=== PATIENT | female | born 1960 | race Caucasian/White ===

== ENCOUNTER → 2017-08-18 13:03 | Outpatient (CLI) | payer MEDICARE, SELFPAY ==
--- NOTE | 2017-08-18 13:08 | CT_ITS ---
CT lung screening EXAM: CT LUNG LOW DOSE WO CONTRAST COMPARISON: None HISTORY: 56 year old female with 62 pack year smoking history asymptomatic ITS.REASON: CURRENT SMOKER ORDERING PHYSICIAN: Leon Ayers MD PATIENT AGE: 56 years TECHNIQUE: The exam was performed on a GE Light Speed [address] scanner using 2.90 mGy CTDI. A low dose helical CT CHEST was performed on a multi-detector scanner. All CT scans at the facility use one or more dose reduction, viz: automated exposure control; ma/kV adjustment per patient size (including targeted exams where dose is matched to indication; i.e. head); or iterative reconstruction technique. The LDCT was performed in a facility that meets the criteria for the screening program. Data regarding this exam was submitted to ACR which is an approved registry. The order for this exam indicates that it came as a result of a lung cancer screening counseling shard decision-making visit that included all the elements required of such a visit including smoking cessation. The radiologist interpreting this exam meets the CMS criteria for the LDCT lung cancer screening program. The exam is reported using the Lung-RADS classification scale and reported to the ACR registry. NOTE: This study was performed for the specific purposes of lung cancer screening and is not an alternative to diagnostic chest CT. RADIATION DOSE: CTDI vol(CT dose Index-volume) = 2.90mG DLP (Dose Length Product) = 100.18 mGcm FINDINGS: Paraseptal emphysematous changes with hyperinflation consistent with smoking-related lung disease 3 mm subpleural nodule right middle lobe laterally, 4 mm subpleural nodular density right lower lobe posteriorly and 2 mm subpleural nodule right lower lobe posteriorly and medially. 4 mm noncalcified nodule left upper lobe laterally Calcified granuloma right upper lobe centrally. Mild biapical fibrotic change IMPRESSION: 1. Lung RADS Category: 2, benign 2. Other findings: Paraseptal emphysema and bronchial thickening with hyperinflation consistent with smoking-related lung disease RECOMMENDATIONS: 12 month LDCT follow-up
== END ==
PROVIDERS: Family Provider Family Medicine; PCP Family Medicine; Visit Provider Family Medicine
DX: Z87.891 Personal history of nicotine dependence (principal); Z12.2 Encounter for screening for malignant neoplasm of respiratory organs

== ENCOUNTER → 2019-02-27 14:58 | Outpatient (CLI) | payer MEDICARE, SELFPAY ==
--- NOTE | 2019-02-27 15:02 | US_ITS ---
PROCEDURE: US EXTREMITY RT LIMITED CLINICAL INDICATION: PALPABLE MASS RT ARM COMPARISON: No exams were available for comparison FINDINGS: There is a homogeneous oval area of subcutaneous slight increased echogenicity in the right upper arm corresponding to the palpable abnormality which measures 2.7 x 0.9 by 2 cm and may represent a lipoma. This could be confirmed with CT if clinically desired. IMPRESSION: Probable lipoma in the right arm corresponding to the palpable abnormality Dictated by: Eder Cancino MD 02/27/2019 16:03 Electronically signed by Eder Cancino MD in [place] 02/27/2019 16:03
== END ==
PROVIDERS: PCP Family Medicine; Visit Provider Family Medicine
DX: D48.7 Neoplasm of uncertain behavior of other specified sites (principal)
CPT/HCPCS: 76882

== ENCOUNTER → 2019-03-12 08:45 | Outpatient (CLI) | payer MEDICARE, SELFPAY ==
--- NOTE | 2019-03-12 08:47 | MM_ITS ---
PROCEDURE: MM DIG SCREENING MAMM BI W/CAD CLINICAL INDICATION: SCREENING There is no personal or family history of breast cancer COMPARISON: DMSB DIGITAL MAMM-SCREEN BILATERAL from 02/22/2011 TECHNIQUE: Standard CC and MLO images were obtained. R2 CAD reviewed. FINDINGS: Prominent diffuse somewhat heterogenic fibroglandular densities are seen in both breasts. There are couple of benign-appearing calcifications right breast. There is benign-appearing oval density upper-outer quadrant left breast not seen on the previous exam. This is likely a cyst or fibroadenoma however recommend the patient return for ultrasound examination left breast for additional evaluation. IMPRESSION: Moderate heterogenic breast density with asymmetric density left breast. BI-RAD Category: 0 Need Additional Imaging Evaluation FOLLOW-UP: IMM Immediate Follow-up Recommended (A letter has been sent to the patient regarding results of the study.) Dictated by: Dr. Farzad Mendieta MD 03/13/2019 09:[address] Farzad Mendieta MD in [place] 03/13/2019 09:52
== END ==
PROVIDERS: PCP Family Medicine; Visit Provider Family Medicine
DX: Z12.31 Encounter for screening mammogram for malignant neoplasm of breast (principal)
CPT/HCPCS: 77067

== ENCOUNTER → 2019-03-21 15:07 | Outpatient (CLI) | payer MEDICARE, SELFPAY ==
--- NOTE | 2019-03-21 | US_ITS ---
PROCEDURE: MM DIG MAMM BI DX W/CAD CLINICAL INDICATION: ABN MAMM Follow-up abnormal mammogram COMPARISON: DMSB DIGITAL MAMM-SCREEN BILATERAL from 02/22/2011 MM DIG SCREENING MAMM BI W/CAD from 03/12/2019 US BREAST LT COMPLETE from 03/21/2019 TECHNIQUE: Standard CC and MLO images were obtained. R2 CAD reviewed. FINDINGS: There is a 7 mm well-circumscribed nodule within the upper outer aspect of the left breast. This is well-circumscribed. No malignant appearing features. Left breast ultrasound: At 3 o'clock there is a 8 mm cyst corresponding to the mammographic abnormality. At 11 o'clock there is a 3 mm hypoechoic nodule nonspecific. This may represent a cyst however there are some low level echoes which may be artifact. Six-month follow-up of this is suggested. IMPRESSION: The mammographic abnormality corresponds to a benign-appearing 8 mm cyst. The ultrasound however did reveal a 3 mm complex hypoechoic nodule at 11 o'clock for which six-month follow-up is suggested. BI-RAD Category: 3 Probably Benign Finding Short Term Follow-up FOLLOW-UP: 6M 6Month Follow-up (A letter has been sent to the patient regarding results of the study.) Dictated by: Eder Cancino MD 03/30/2019 09:49 Electronically signed by Eder Cancino MD in [place] 03/30/2019 09:49
== END ==
PROVIDERS: PCP Family Medicine; Visit Provider Family Medicine
DX: R92.8 Other abnormal and inconclusive findings on diagnostic imaging of breast (principal)
CPT/HCPCS: 76641; 77066

== ENCOUNTER → 2019-03-27 10:08 | Outpatient (CLI) | payer MEDICARE, SELFPAY ==
[2019-03-27 10:40] LABS: Basophils % 0.7 % (0.1-2.0); Eosinophils # 0.1 K/mm3 (0.0-0.4); Eosinophils % 1.5 % (0.1-12.0); Hematocrit 40.6 % (37.0-47.0); Hemoglobin 12.9 g/dL (12.2-16.2); Lymphocytes # 1.4 K/mm3 (0.7-4.5); Lymphocytes % 33.1 % (10-50); Mean Corpuscular HGB Conc 31.8 g/dL (31.8-35.4); Mean Corpuscular Hemoglobin 30.1 pg (27.0-31.2); Mean Corpuscular Volume 94.6 fl (81-99); Mean Platelet Volume 7.5 fl (7.4-10.4); Monocytes # 0.2 K/mm3 (0.1-1.0); Monocytes % 5.4 % (1.7-9.3); Neutrophils # 2.6 K/mm3 (1.8-7.8); Neutrophils % 59.4 % (37.0-80.0); Platelet Count 251 K/mm3 (142-424); Red Blood Count 4.29 M/mm3 (4.20-5.40); Red Cell Distribution Width 12.6 % (11.5-17.5); White Blood Count 4.3 K/mm3 (4.8-10.8)
[2019-03-27 12:17] LABS: Anion Gap 11.9 mEq/L (5-15); Blood Urea Nitrogen 6 mg/dL (7-18); Carbon Dioxide 29 mmol/L (21.0-32.0); Chloride 104 mmol/L (98-107); Estimated Glomerular Filt Rate 73 ml/min (>60); GFR (African American) 89 ML/MIN (>60); Glucose 103 mg/dL (74-106); Potassium 4.9 mmoL/L (3.5-5.1); Sodium 140 mmol/L (136-145)
== END ==
PROVIDERS: Visit Provider Surgery
DX: D17.9 Benign lipomatous neoplasm, unspecified (principal)
CPT/HCPCS: 36415; 80048; 85025

== ENCOUNTER → 2019-09-26 12:22 | Outpatient (CLI) | payer MEDICARE, SELFPAY ==
--- NOTE | 2019-09-26 12:26 | US_ITS ---
PROCEDURE: US BREAST LT COMPLETE CLINICAL INDICATION: LEFT BREAST ABN MAMM COMPARISON: US BREAST LT COMPLETE from 03/21/2019 FINDINGS: 3 mm cyst at 12 o'clock 7 mm cyst at 3 o'clock 3 mm cyst at 10 o'clock 2.4 by 0.6 cm slightly hypoechoic area in the outer aspect of the left breast consistent with a lipoma. Small nodes in the axilla. IMPRESSION: Benign findings. Recommend resume six-month mammographic follow-up Dictated by: Eder Cancino MD 10/04/2019 09:58 Electronically signed by Eder Cancino MD in [place] 10/04/2019 09:58
== END ==
PROVIDERS: PCP Family Medicine; Visit Provider Family Medicine
DX: R92.8 Other abnormal and inconclusive findings on diagnostic imaging of breast (principal)
CPT/HCPCS: 76641

== ENCOUNTER → 2020-10-05 10:00 | Outpatient (CLI) | payer MEDICARE, SELFPAY ==
--- NOTE | 2020-10-05 10:10 | XR_ITS ---
PROCEDURE: XR SHOULDER RT MIN 2V CLINICAL INDICATION: ROTATOR CUFF SYNDROME COMPARISON: No exams were available for comparison FINDINGS: No fracture or dislocation. No lytic or blastic change. There is normal mineralization. The joint spaces are well-preserved. No significant degenerative/arthritic changes. No erosive changes evident. Other findings:None. IMPRESSION: Negative right shoulder Dictated by: Eder Cancino MD 10/05/2020 10:24 Eder Cancino MD in [place] 10/05/2020 10:24
== END ==
PROVIDERS: PCP Family Medicine; Visit Provider Family Medicine
DX: M75.101 Unspecified rotator cuff tear or rupture of right shoulder, not specified as traumatic (principal)
CPT/HCPCS: 73030

== ENCOUNTER 2020-10-27 10:40 | Outpatient (RCR) | payer MEDICARE, SELFPAY ==
--- NOTE | 2020-10-27 11:28 | HMH.OTOPEV ---
OT Inpatient Evaluation Rehab OT Outpatient Eval Start: 10/27/20 11:16 Freq: Status: Active Protocol: Document 10/27/20 11:16 CHAD ([facility]20 11[id number] Electronically Signed By Dany Dwyer OT 10/27/20 11:16 Outpatient Therapy Subjective History Subjective History Pt is a 60 year old female who reports to therapy for initial evaluation to right shoulder. Pt explains her shoulder has been hurting for years, but she has never seeked medical attention. Pt does not recall a specific injury causing the pain in her right shoulder. She explains her shoulder has become much more painful within the past year. She does have constant pain, decreased AROM and decreased strength. Chief Complaint Pain,Stiff,Weakness Symptom Type Ache,Throb,Sharp,Dull Symptoms Relieved By Nothing Symptoms Aggravated By Physical Activity,Lifting Prior Functional Limitations None Current Functional Limitations Reaching,Lifting,Housework, Sleeping,Recreation Activity Symptom Description Constant but Variable Level of pain today (0-10) 6 Pain scale - at its best (0-10) 6 Pain scale - at its worst (0-10) 10 Shoulder/Elbow Eval Shoulder Objective Measurements Shoulder ROM Right Shoulder Abduction Active Range of 130 degrees Motion (degrees) Shoulder Flexion Active Range of Motion 145 degrees (degrees) Query Text: Shoulder External Rotation Active Range 70 degrees of Motion (degrees) Shoulder Internal Rotation Active Range 50 degrees of Motion (degrees) pain with active ROM shoulder exam right standard pain with passive ROM shoulder exam right standard decreased ROM shoulder exam standard right Shoulder MMT Shoulder Abduction Strength Grade 3 Fair Shoulder Extension Strength Grade 3 Fair Shoulder Flexion Strength Grade 3 Fair Shoulder External Rotation Strength 3 Fair Grade Shoulder Internal Rotation Strength 3 Fair Grade Shoulder Strength Patient Testing Sitting Position Shoulder Special Tests impingement sign present shoulder exam right standard Shoulder Empty Can (Supraspinatus) Test Positive Right Shoulder Nima-Christopher Impi
== END 2020-10-27 12:00 | disposition home or self-care (01) ==
LOC: OT 10:40
PROVIDERS: PCP Family Medicine; Visit Provider Family Medicine
DX: M75.101 Unspecified rotator cuff tear or rupture of right shoulder, not specified as traumatic (principal)
CPT/HCPCS: 97166

== ENCOUNTER → 2023-01-16 15:12 | Outpatient (CLI) | payer MEDICARE, SELFPAY ==
[2023-01-16 12:37] LABS: Basophils % 0.7 % (0.1-2.0); Eosinophils # 0.1 K/mm3 (0.0-0.4); Hematocrit 45.6 % (37.0-47.0); Hemoglobin 14.4 g/dL (12.2-16.2); Lymphocytes # 1.8 K/mm3 (0.7-4.5); Mean Corpuscular HGB Conc 31.7 g/dL (31.8-35.4); Mean Corpuscular Hemoglobin 29.7 pg (27.0-31.2); Mean Corpuscular Volume 93.8 fl (81-99); Mean Platelet Volume 7.8 fl (7.4-10.4); Monocytes # 0.4 K/mm3 (0.1-1.0); Monocytes % 7.3 % (1.7-9.3); Neutrophils # 2.9 K/mm3 (1.8-7.8); Neutrophils % 54.9 % (37.0-80.0); Platelet Count 311 K/mm3 (142-424); Red Blood Count 4.86 M/mm3 (4.20-5.40); White Blood Count 5.3 K/mm3 (4.8-10.8)
[2023-01-16 13:07] LABS: Alanine Aminotransferase 23 U/L (12-78); Albumin/Globulin Ratio 1.5 (1.1-1.8); Alkaline Phosphatase 110 U/L (38-126); Anion Gap 13.2 mEq/L (5-15); Aspartate Amino Transferase 40 U/L (14-36); Bilirubin,Total 0.2 mg/dl (0.2-1.3); Blood Urea Nitrogen 12 mg/dl (7-17); Carbon Dioxide 30 mmol/L (22.0-30.0); Chloride 102 mmol/L (98-107); Chol/HDL Ratio 3.8 (1-3.5); Cholesterol 205 mg/dl (140-200); Estimated Glomerular Filt Rate 63 ml/min (>60); GFR (African American) 77 ML/MIN (>60); Globulin 3.4 g/dL (1.3-3.2); Glucose 100 mg/dl (74-100); HDL Cholesterol 54 mg/dl (40-60); Potassium 5.2 mmoL/L (3.5-5.1); Sodium 140 mmol/L (136-145); Total Protein,Serum 8.4 g/dl (6.3-8.2); Triglycerides 106 mg/dl (30-150); VLDL Cholesterol 21 mg/dL (0-40)
[2023-01-16 13:23] LABS: 25-OH Vitamin D, Total 63.3 ng/mL (30-100)
[2023-01-16 13:38] LABS: Thyroid Stimulating Hormone 7.65 uIU/mL (0.465-4.68)
[2023-01-16 13:50] LABS: Hemoglobin A1C 5.2 % (4.0-6.0)
== END ==
PROVIDERS: PCP Internal Medicine; Visit Provider Internal Medicine
DX: Z00.00 Encounter for general adult medical examination without abnormal findings (principal); E78.5 Hyperlipidemia, unspecified; R73.03 Prediabetes; E55.9 Vitamin D deficiency, unspecified; Z79.899 Other long term (current) drug therapy
CPT/HCPCS: 80053; 80061; 82306; 83036; 84443; 85025

== ENCOUNTER → 2023-01-18 16:15 | Outpatient (CLI) | payer MEDICARE, SELFPAY ==
[2023-01-18 15:42] LABS: Free T4 (Free Thyroxine) 0.99 ng/dl (0.78-2.19)
[2023-01-20 08:53] LABS: Thyroid Peroxidase Antibodies 10 IU/mL (0-34); Triiodothyronine (T3) Total 99 ng/dL (71-180)
[2023-01-20 16:54] LABS: Thyroglobulin Level <1.0 IU/mL (0.0-0.9)
[2023-01-24 08:44] LABS: Triiodothyronine (T3) Reverse 13.8
== END ==
PROVIDERS: PCP Internal Medicine; Visit Provider Internal Medicine
DX: R79.89 Other specified abnormal findings of blood chemistry (principal); R63.4 Abnormal weight loss; Z79.899 Other long term (current) drug therapy
CPT/HCPCS: 84439; 84480; 84482; 86376; 86800

== ENCOUNTER → 2023-02-07 08:56 | Outpatient (CLI) | payer MEDICARE, SELFPAY ==
--- NOTE | 2023-02-07 08:57 | XR_ITS ---
FINAL REPORT CLINICAL HISTORY: osteoporosis FINDINGS: Using L1-4, the bone mineral density of the spine is 0.786 g/cm2, corresponding to T-score of -2.4. Using the left hip, the bone mineral density of the femoral neck is 0.672 g/cm2, corresponding to a T-score of -2.2. FRAX data: 14% chance for major osteoporotic fracture. Using the right hip, the bone mineral density of the femoral neck is 0.619 g/cm2, corresponding to a T-score of -2.1. FRAX data: 14% chance for major osteoporotic fracture. IMPRESSION: Low bone mineral density of the lumbar spine and bilateral hips consistent with osteopenia. Reviewed, Interpreted and Dictated by Kade Bazan III, MD Transcribed by Uday Garcia Authenticated and [facility]
== END ==
PROVIDERS: PCP Internal Medicine; Visit Provider Internal Medicine
DX: M81.0 Age-related osteoporosis without current pathological fracture (principal)
CPT/HCPCS: 77080

== ENCOUNTER 2023-02-17 06:21 | Day surgery (SDC) | payer MEDICARE, SELFPAY ==
[2023-02-14 12:23] VITALS: BMI 17.9
[2023-02-17] MEDS: LACTATED RINGERS 1000ML 1,000 ML 25 ML IV (06:44)
[2023-02-17 06:51] VITALS: BP 141/82; PULSE 83; RESP 18; TEMP 37.1; O2SAT 99
--- NOTE | 2023-02-17 07:03 | P.PCN_ITS ---
Procedure: Date: 02/17/23 Patient Date of :: 1960 Procedure Performed:: Partial colonoscopy Indications:: Patient is a 62-year-old female from car around with history of tobacco abuse, chronic pain, generalized anxiety disorder, history of esophageal stricture status post upper endoscopy by Dr. Chappell in 2019, on methadone and Xanax. She was referred for colonoscopy apparently for history of polyps . Patient did have prior colonoscopy but she is unsure as to at what facility or when this was done. She had previously been under the care of Dr. Leon Ayers. Performing Provider:: Kade Ly MD Referring Provider:: Wilbert Grey MD Sedation:: MAC sedation Procedure:: Patient history was obtained and appropriate physical examination was performed. Patient's medications and allergies were reviewed. Informed consent was obtained after explaining the benefits, alternatives, and risks of the procedure including, but not limited to, bleeding, perforation, missed lesions, and adverse reaction to anesthesia medications. Patient was transported to endoscopy procedure room. Patient was connected to monitoring devices. Throughout the procedure the patient's blood pressure, pulse, and oxygen saturations were monitored continuously. Patient identification and planned procedure were verified by the staff. Patient was positioned in lateral decubitus position. Digital anorectal exam w as performed. Variable stiffness Olympus colonoscope was inserted. Prolonged attempts were made to advance the colonoscope beyond the distal sigmoid colon. There was significant angulation and tortuosity. There was poor colonic preparation. After prolonged period of time of unsuccessful advancement the colonoscope was withdrawn and the endoscope was inserted. With some difficulty it was advanced ultimately to the hepatic flexure region. Colonic preparation was poor. This could not be completely cleared even with extensive irrigation and suctioning. Colonoscope was slowly withdrawn with high-volume trans colonoscopic irrigation and suctioning. There were no obvious large polyps or obstructing lesions in the partially visualized portion of the colon. Colonoscope was withdrawn. . . Findings:: Poor prep Sigmoid diverticuli Significant angulation and tortuosity of the distal sigmoid making procedure technically difficult Recommendations:: Recommend multiday aggressive bowel prep and reattempt at colonoscopy. Complications:: None immediate Estimated blood obtained (mL): 0 Colonoscopy Component Colonoscopy Component Was a colonoscopy performed during today's procedure?: Yes Recommended follow up colonoscopy of at least 10 years?: No If no, follow up colonoscopy recommended in ___ years?: 0.5 Reason for not recommending >/= 10 yr follow-up interval?: See above
--- NOTE | 2023-02-17 07:16 | P.PNANES_ITS ---
[facility] Disclaimer: The information contained in this section may have been updated after the patient was seen, as this information can be updated by other users. Medical History Encounter for annual physical exam Surgical History (Updated 02/17/23 @ 06:46 by Daisy Ann RN) History of cholecystectomy History of colonoscopy History of hysterectomy History of surgery on arm Hx of neck surgery Family History (Updated 02/17/23 @ 06:48 by Daisy Ann RN) Other Family history of Alzheimer's disease Family history of myocardial infarction Social History (Updated 02/17/23 @ 06:53 by Daisy Ann RN) Smoking Status: Current every day smoker tobacco type: cigarettes packs per day: 1 alcohol intake: never substance use type: denies use current occupational status: other Travel in the last 8 weeks: None household members: spouse housing: house caffeine: Yes [facility] Anesthesia Checklist Patient Identification Patient Identification: Arm Band and Other: Structural Data Admitted From: Home Planned Operative Procedure/s: colonoscopy Consent for Planned Operative Procedure(s) Verified: Yes Verified Documents: Surgical Consent and History and Physical NPO Status Verified Time NPO: 00:00 Additional verifications Patient : No Anesthesia Reactions: No Hx Blood Transfusions: No Blood Transfusion Reaction: No Cephalosporin Allergy: No Previous Colonoscopy: No Airway Assessment C-Spine Mobility Assessed: Yes TMJ Mobility Assessed: Yes Dentition: Poor Dentition Neurological Assessment Level of Consciousness: Awake, Alert, Appropriate and Follows Commands Hx Seizures: No Numbness or tingling in extremities: No Anesthesia Plan Anesthesia Risk discussed: Yes ASA Class: II Anesthesia Type: MAC
[2023-02-17 07:28] VITALS: O2SAT 100
[2023-02-17 08:23] VITALS: BP 109/70; PULSE 97; RESP 14; TEMP 36.4; O2SAT 99
[2023-02-17 08:33] VITALS: BP 102/68; PULSE 89; RESP 16; O2SAT 100
[2023-02-17 08:43] VITALS: BP 116/86; PULSE 93; RESP 18; O2SAT 100
[2023-02-17 08:53] VITALS: BP 120/66; PULSE 79; RESP 17; TEMP 36.6; O2SAT 100
== END 2023-02-17 08:53 | disposition home or self-care (01) ==
PROVIDERS: PCP Internal Medicine; Visit Provider Surgery
PROC: 0DJD8ZZ Inspection of Lower Intestinal Tract, Via Natural or Artificial Opening Endoscopic (ICD-10-PCS; CPT G0105; principal; 2023-02-17 07:30)
DX: K56.2 Volvulus (principal); Z91.199 Patient's noncompliance with other medical treatment and regimen due to unspecified reason; K57.30 Diverticulosis of large intestine without perforation or abscess without bleeding; Z86.010 Personal history of colon polyps
CPT/HCPCS: G0105; J2704

== ENCOUNTER → 2023-03-07 07:18 | Outpatient (CLI) | payer MEDICARE, SELFPAY ==
[2023-03-07 22:20] LABS: Amphetamine/Metha Screen,Urine Negative ng/ml (<1000); Barbiturates Screen,Urine Negative ng/ml (<200)
[2023-03-07 22:21] LABS: Benzodiazepines Screen,Urine Negative ng/ml (<200)
[2023-03-07 22:22] LABS: Cannabinoid Screen,Urine Negative ng/ml (<50)
[2023-03-07 22:23] LABS: Cocaine Screen,Urine Negative ng/ml (<300); Methadone Screen,Urine Positive ng/ml (<300)
[2023-03-07 22:25] LABS: Opiate Screen,Urine Negative ng/ml (<300)
[2023-03-07 22:26] LABS: Phencyclidine Screen,Urine Negative ng/ml (<25)
== END ==
PROVIDERS: PCP Internal Medicine; Visit Provider Internal Medicine
DX: G89.29 Other chronic pain (principal)
CPT/HCPCS: 80305

== ENCOUNTER → 2023-03-30 13:32 | Outpatient (CLI) | payer MEDICARE, SELFPAY ==
[2023-03-30 14:54] VITALS: BMI 17.4
== END ==
PROVIDERS: PCP Internal Medicine; Visit Provider Internal Medicine
DX: R63.4 Abnormal weight loss (principal); Z68.1 Body mass index [BMI] 19.9 or less, adult; Z71.3 Dietary counseling and surveillance
CPT/HCPCS: 97802

== ENCOUNTER 2023-04-20 09:58 | Outpatient (CLI) | payer MEDICARE, SELFPAY ==
[2023-04-20 20:21] LABS: Thyroid Stimulating Hormone 2.88 uIU/mL (0.465-4.68)
[2023-04-20 22:26] LABS: Amphetamine/Metha Screen,Urine Negative ng/ml (<1000); Barbiturates Screen,Urine Negative ng/ml (<200); Benzodiazepines Screen,Urine Positive ng/ml (<200); Cannabinoid Screen,Urine Negative ng/ml (<50); Cocaine Screen,Urine Negative ng/ml (<300); Methadone Screen,Urine Positive ng/ml (<300); Phencyclidine Screen,Urine Negative ng/ml (<25)
[2023-04-20 22:34] LABS: Opiate Screen,Urine Negative ng/ml (<300)
== END 2023-04-21 23:59 | disposition home or self-care (01) ==
PROVIDERS: PCP Internal Medicine; Visit Provider Internal Medicine
DX: Z79.899 Other long term (current) drug therapy (principal); E05.90 Thyrotoxicosis, unspecified without thyrotoxic crisis or storm
CPT/HCPCS: 80307; 84443

== ENCOUNTER 2023-05-15 11:35 | Outpatient (CLI) | payer MEDICARE, SELFPAY ==
[2023-05-15 11:55] LABS: Amphetamine/Metha Screen,Urine Negative ng/ml (<1000); Benzodiazepines Screen,Urine Positive ng/ml (<200)
[2023-05-15 11:56] LABS: Barbiturates Screen,Urine Negative ng/ml (<200)
[2023-05-15 11:57] LABS: Cannabinoid Screen,Urine Negative ng/ml (<50); Cocaine Screen,Urine Negative ng/ml (<300)
[2023-05-15 11:58] LABS: Methadone Screen,Urine Positive ng/ml (<300); Opiate Screen,Urine Negative ng/ml (<300)
[2023-05-15 11:59] LABS: Phencyclidine Screen,Urine Negative ng/ml (<25)
[2023-05-23 09:08] LABS: Alprazolam Positive (.); Benzodiazepines Positive ng/mL (Cutoff=100); Clonazepam Negative (Cutoff=100); Flurazepam Negative (Cutoff=100); Lorazepam Negative (Cutoff=100); Midazolam Negative (Cutoff=100); Temazepam Negative (Cutoff=100); Triazolam Negative (Cutoff=100)
== END 2023-05-15 23:59 ==
LOC: LAB.DROPOF 11:36
PROVIDERS: PCP Family Medicine; Visit Provider Family Medicine
DX: Z79.899 Other long term (current) drug therapy (principal)
CPT/HCPCS: 80307; 80346